=== PATIENT | male | born 1960 | race Caucasian/White ===

== ENCOUNTER 2017-09-16 12:50 | Day surgery (SDC) | payer OTHER ==
[~2017-09-16] VITALS: Ht 193 cm; Wt 126.1 kg
[~2017-09-16 12:50] MED LIST: CHOLESTEROL MED; DEPOTESTOSTERONE IM; NAPR500 PO; SIMV10 PO; TRAM50 PO
[2017-09-16] MEDS ORDERED: Hair, Skin & N1 EACH PO (13:40)
== END 2017-09-16 15:15 | disposition home or self-care (01) ==
LOC: ORSCSDS 12:50
PROVIDERS: Surgery
PROC: 0DBP8ZX Excision of Rectum, Via Natural or Artificial Opening Endoscopic, Diagnostic (ICD-10-PCS; principal; 2017-09-16 14:15)
DX: Z12.11 Encounter for screening for malignant neoplasm of colon (principal); Z86.010 Personal history of colon polyps; K62.1 Rectal polyp; E78.2 Mixed hyperlipidemia; F17.210 Nicotine dependence, cigarettes, uncomplicated
CPT/HCPCS: 88305; J7120